=== PATIENT | male | born 1960 | race Caucasian/White ===

== ENCOUNTER 2018-02-26 16:48 | Emergency (ER) | payer OTHER, BC ==
--- NOTE | 2018-02-26 17:00 | ER Document Report ---
ED Medical Screen (RME) - General Chief Complaint: Arm Problem Stated Complaint: ARM PAIN Time Seen by Provider: 02/26/18 16:54 Notes: RAPID MEDICAL EVALUATION DISCLOSURE I have seen this patient as part of a Rapid Medical Evaluation and, if applicable, placed any initially appropriate orders. The patient will be seen and fully evaluated, including a full history and physical exam, by a provider ( in Main ED or Fast Track) when a room becomes available. 57-year-old male status post fall off ladder earlier in the week and was seen elsewhere with x-rays of the wrist confirming wrist fracture here with complaints of elbow pain and numbness and tingling and swelling in the hand. He states that this has progressively worsened since the fall. He reports they did not obtain an x-ray of his elbow because "I do not think it was hurting much that day". Has an appointment with orthopedics next Thursday. EXAM Soft compartments TTP of left medial elbow without deformity TRAVEL OUTSIDE OF THE [place] IN LAST 30 DAYS: No - Related Data Allergies/Adverse Reactions: No Known Allergies Allergy (Unverified 11/30/12 20:07) Past Medical History Endocrine Medical History: Denies: Hx Diabetes Mellitus Type 1, Hx Diabetes Mellitus Type 2 - Immunizations Immunizations up to date: Yes Hx Diphtheria, Pertussis, Tetanus Vaccination: Yes - 2011 Physical Exam - Vital signs Vitals: Temp Pulse Resp BP Pulse Ox 98.2 F 91 20 145/79 H 99 02/26/18 16:54 02/26/18 16:54 02/26/18 16:54 02/26/18 16:54 02/26/18 16:54 Course - Vital Signs Vital signs: Temp Pulse Resp BP Pulse Ox 98.2 F 91 20 145/79 H 99 02/26/18 16:54 02/26/18 16:54 02/26/18 16:54 02/26/18 16:54 02/26/18 16:54 Doctor's Discharge - Discharge Referrals: LOCALMD,NO [Primary Care Provider] - Follow up as needed
--- NOTE | 2018-02-26 17:26 | RADIOLOGY REPORT (SQ) ---
EXAM DESCRIPTION: ELBOW LEFT AP/LATERAL COMPLETED DATE/TIME: 02/26/2018 5:16 pm REASON FOR STUDY: elbow pain after fall COMPARISON: None. NUMBER OF VIEWS: Four views. TECHNIQUE: AP, lateral, and both oblique radiographic images acquired of the left elbow. LIMITATIONS: None. FINDINGS: MINERALIZATION: Normal. BONES: No acute fracture or dislocation. No worrisome bone lesions. JOINT: No effusion. SOFT TISSUES: No soft tissue swelling. No foreign body. OTHER: No other significant finding. IMPRESSION: NEGATIVE STUDY OF THE LEFT ELBOW. NO RADIOGRAPHIC EVIDENCE OF ACUTE INJURY. TECHNICAL DOCUMENTATION: JOB ID: [id number] [employer]- All Rights Reserved Reading location - IP/workstation name: [email or web address]
--- NOTE | 2018-02-26 18:34 | ER Document Report ---
ED Extremity Problem, Upper - General Chief Complaint: Arm Problem Stated Complaint: ARM PAIN Time Seen by Provider: 02/26/18 16:54 Mode of Arrival: Ambulatory Information source: Patient Notes: 57-year-old male presents to ED for increasing pain numbness and tingling to the hand and elbow after his fall off of a ladder on Thursday. He states he was seen in urgent care and treated with a splint and shoulder immobilizer and told to follow-up with orthopedics on Thursday. He states that his hand and elbow have become more more numb and he is concerned. He was seen in the pit area by Dr. Hooker who ordered a elbow x-ray. The elbow x-ray is negative. This has been discussed with the patient. When I removed the sling to look at the splint he has a cock-up splint on his arm. He states that the doctor told him that he had broken his radius and ulnar and that he was not supposed to move his arm until seen by the orthopedic. Discussed this x-ray with Dr. Hooker and we are going to change his splint to a wide sugar tong splint to totally immobilize the wrist. TRAVEL OUTSIDE OF THE [place] IN LAST 30 DAYS: No - HPI Patient complains to provider of: Injury, Left, Wrist, Other - Pain to the left hand and elbow Onset: Other - Thursday Recent injury: Yes Where: Work Quality of pain: [place], Other - Numb and tingling to the hand and elbow Severity of pain: Moderate Pain Level: 4 Context: Fall Associated symptoms: None Exacerbated by: Movement, Exertion Relieved by: Rest, Positioning Similar symptoms previously: Yes Recently seen / treated by doctor: Yes - Related Data Allergies/Adverse Reactions: No Known Allergies Allergy (Unverified 11/30/12 20:07) Past Medical History - General Information source: Patient - Social History Smoking Status: Current Every Day Smoker Cigarette use (# per day): Yes - Pack per day Smoking Education Provided: Yes - 4 minutes Frequency of alcohol use: None Drug Abuse: None Occupation: natural gas technician Lives with: Family Family History: None Patient has suicidal ideation: No Patient has homicidal ideation: No - Past Medical History Cardiac Medical History: Reports: Hx Hypercholesterolemia Pulmonary Medical History: Reports: None EENT Medical History: Reports: None Neurological Medical History: Reports: None Endocrine Medical History: Reports: None Renal/ Medical History: Reports: None Malignancy Medical History: Reports Hx Skin Cancer - Basal cell carcinoma of the face GI Medical History: Reports: None Musculoskeltal Medical History: Reports Hx Musculoskeletal Trauma Skin Medical History: Reports Other - Sepsis from an infected hand many years ago Psychiatric Medical History: Reports: None Traumatic Medical History: Reports: Hx Fractures - Left ulnar and radius, facial fractures Infectious Medical History: Reports: None Past Surgical History: Reports: Hx Orthopedic Surgery - Patient reconstruction due to right cheek fracture, Other - Basal cell carcinoma removed from nose - Immunizations Immunizations up to date: Yes Hx Diphtheria, Pertussis, Tetanus Vaccination: Yes - 2011 Review of Systems - Review of Systems Constitutional: No symptoms reported EENT: No symptoms reported Cardiovascular: No symptoms reported Respiratory: No symptoms reported Gastrointestinal: No symptoms reported Genitourinary: No symptoms reported Male Genitourinary: No symptoms reported Musculoskeletal: Other - Pain numbness and tingling to the left hand wrist and elbow Skin: No symptoms reported Hematologic/Lymphatic: No symptoms reported Neurological/Psychological: No symptoms reported -: Yes All other systems reviewed and negative Physical Exam - Vital signs Vitals: Pulse Resp BP Pulse Ox 89 20 145/79 H 99 02/26/18 16:53 02/26/18 16:53 02/26/18 16:53 02/26/18 16:53 Interpretation: Normal - General General appearance: Appears well, Alert - HEENT Head: Normocephalic, Atraumatic Eyes: Normal Pupils: PERRL - Respiratory Respiratory status: No respiratory distress Chest status: Nontender Breath sounds: Normal Chest palpation: Normal - Cardiovascular Rhythm: Regular Heart sounds: Normal auscultation Murmur: No - Abdominal Inspection: Normal Distension: No distension Bowel sounds: Normal Tenderness: Nontender Organomegaly: No organomegaly - Back Back: Normal, Nontender - Extremities General upper extremity: Normal color, Normal temperature General lower extremity: Normal inspection, Nontender, Normal color, Normal ROM , Normal temperature, Normal weight bearing. No: Marian's sign Forearm: Tender Wrist: Tender, Limited ROM - Due to fracture and immobilization for fracture Hand: No evidence of human bite, No evidence of FB, Swelling - Mild, Other - Numbness and tingling - Neurological Neuro grossly intact: Yes Cognition: Normal Orientation: AAOx4 Gardiner Coma Scale Eye Opening: Spontaneous Anuel Coma Scale Verbal: Oriented Anuel Coma Scale Motor: Obeys Commands Gardiner Coma Scale Total: 15 Speech: Normal Motor strength normal: LUE, RUE, LLE, RLE Sensory: Normal - Psychological Associated symptoms: Normal affect, Normal mood - Skin Skin Temperature: Warm Skin Moisture: Dry Skin Color: Normal Course - Re-evaluation Re-evalutation: 02/26/18 18:38 X-ray left elbow was negative. X-ray was discussed with patient. I discussed the exam and history with Dr. Hooker who agreed that the splint needed to be changed from a cock-up splint to a sugar tong splint to reduce movement to the wrist. We will change his splint to the wide sugar tong. Patient was encouraged to keep arm elevated and iced and to follow-up with his orthopedic as scheduled on Thursday. Patient states he has narcotics at home for the pain. Patient encouraged to decrease his smoking. - Vital Signs Vital signs: Temp Pulse Resp BP Pulse Ox 98.5 F 58 L 16 162/70 H 98 02/26/18 18:50 02/26/18 18:50 02/26/18 18:50 02/26/18 18:50 02/26/18 18:50 - Diagnostic Test Radiology reviewed: Image reviewed, Reports reviewed Procedures - Immobilization Left Wrist Time completed: 18:47 Immobilizer type: Sugar tong Performed by: PCT Post-Proc Neuro Vasc Exam: Normal Alignment checked and good: Yes Discharge - Discharge Clinical Impression: Pain in left elbow, Recent ulnar radial fracture left Condition: Stable Disposition: HOME, SELF-CARE Additional Instructions: Fractured Radius and Ulna Both bones of the forearm, the radius and the ulna, are fractured. This type of fracture is typically caused by falling onto the outstretched hand. The fractures are not serious, however, and should heal well with adequate protection. Your physician's evaluation shows the bones are now in good position to heal. A cast or splint is used to protect the fractures. For the first few days after the injury, the arm should be elevated and ice packed. Most often, a splint is used first, with a cast later on. Healing takes from four to eight weeks, depending on the age of the patient and the seriousness of the broken bones. Your doctor has explained the treatment plan. It's important that you follow up as instructed to prevent complications. Call the doctor or return at once if severe pain or swelling occur, or if the hand becomes numb, swollen, or discolored. Splint Pending Casting Your injury can't be casted until the swelling has subsided. Therefore, a temporary splint has been placed to protect the injury. Full use of an injured area is not possible in a splint. You should follow the doctor's instructions concerning rest, ice, and elevation of the injury. Never do anything which causes pain under the splint. Keep the splint on ALL THE TIME until you return for casting. If there is unexpected severe pain, or numbness, discoloration, or swelling beyond the splint, you should return at once. ICE & ELEVATION: Apply ice packs frequently against the painful area. Many different schedules are recommended, such as "20 minutes on, 20 minutes off" or "one hour ice, two hours rest." If you need to work, you may need to go longer between ice treatments. You should plan to have the area ice packed AT LEAST one- fourth of the time. The ice should be applied over the wrap, tape, or splint, or over a layer of cloth -- not directly against the skin. Some ice bags have a built-in cloth and can be put directly on the skin. Your injured part should be elevated as much as possible over the next 48 hours. Try to keep the injury above the level of the heart. Avoid use of the injured area. Elevation and rest will decrease the swelling. USE OF [id number]-IAZIUGM IBUPROFEN: Ibuprofen (Advil, Nuprin, Medipren, Motrin IB) is a medication for fever and pain control. In addition, it has anti- inflammatory effects which may be beneficial, especially in the treatment of injuries. It's best to take ibuprofen with food. Persons with ulcer disease or allergy to aspirin should notify their physician of this before taking ibuprofen. Ibuprofen can be given every four to six hours, for a total of four doses daily. Age Pain or fever dose Antiinflammatory dose 6-8 yr 200 mg (1 tab) 200 mg (1 tab) 9-11 yr 200 mg (1 tab) 200-400 mg (1-2 tab) 11-14 yr 200-400 mg (1-2 tab) 400 mg (2 tab) 15-adult 400 mg (2 tab) 600 mg (3 tab) FOLLOW-UP CARE: If you have been referred to a physician for follow-up care, call the physician s office for an appointment as you were instructed or within the next two days. If you experience worsening or a significant change in your symptoms, notify the physician immediately or return to the Emergency Department at any time for re-evaluation. Keep your follow-up appointment with orthopedic as scheduled, keep your arm elevated as discussed. Forms: Elevated Blood Pressure, Smoking Cessation Education Referrals: LOCALMD,NO [NO LOCAL MD] - Follow up as needed
[2018-02-26 18:51] VITALS: BP 162/70
== END 2018-02-26 18:52 | disposition home or self-care (01) ==
LOC: ER 16:48
DX: S52.202A Unspecified fracture of shaft of left ulna, initial encounter for closed fracture (principal); S52.92XA Unspecified fracture of left forearm, initial encounter for closed fracture; M25.522 Pain in left elbow; M25.532 Pain in left wrist; M79.642 Pain in left hand; R20.0 Anesthesia of skin; R20.2 Paresthesia of skin; W11.XXXA Fall on and from ladder, initial encounter
CPT/HCPCS: 99283